=== PATIENT | male | born 1990 | race Caucasian/White ===

== ENCOUNTER → 2019-03-30 08:53 | Outpatient (CLI) | payer OTHER, MEDICAID, SELFPAY ==
[2019-03-30 10:00] LABS: Add Manual Diff / Slide Review NO; Basophils Absolute Auto 0 /uL (0-100); Basophils Percent Auto 0.5 % (0-2); Eosinophils Absolute Auto 200 /uL (0-450); Eosinophils Percent Auto 2.5 % (2-4); Hemoglobin 13.1 g/dL (13.5-17.5); Lymphocytes Absolute Auto 1900 /uL (1100-4500); Lymphocytes Percent Auto 23.6 % (25-40); Mean Corpuscular HGB Conc 34.5 % (30-36); Mean Corpuscular Hemoglobin 28.3 PG (26-34); Monocytes Absolute Auto 500 /uL (0-900); Monocytes Percent Auto 6.7 % (3-14); Neutrophils Absolute Auto 5300 /uL (1500-7000); Neutrophils Percent Auto 66.7 % (50-75); Platelet Count 369 X10^3/uL (150-400); Red Blood Cell Count 4.63 X10^6/uL (4.5-5.9); Red Cell Distribution Width 13.7 % (11.6-14.8); White Blood Cell Count 7.9 X10^3/uL (4.5-11.0)
[2019-03-30 10:19] LABS: Alanine Aminotransferase 49 IU/L (21-72); Albumin 4.2 g/dL (3.5-5.0); Albumin Globulin Ratio 1.3 (1.0-2.8); Alkaline Phosphatase 108 U/L (38-126); Aspartate Aminotransferase 37 IU/L (17-59); BUN Creatinine Ratio 13.8 (6-22); Bilirubin Total 0.5 mg/dL (0.2-1.3); Blood Urea Nitrogen 11 mg/dL (9-20); Calcium 9.4 mg/dL (8.4-10.2); Carbon Dioxide 27 mmol/L (22-32); Chloride 100 mmol/L (98-107); Estimated Glomerular Filt Rate > 60.0 mL/min (>60); Globulin 3.2 g/dL (1.7-4.1); Glucose 100 mg/dL (70-100); HEMOLYSIS < 15 (0-50); Potassium 4.3 mmol/L (3.4-5.1); Sodium 138 mmol/L (137-145); Total Protein 7.4 g/dL (6.3-8.2)
== END ==
PROVIDERS: Visit Provider Hospitalist
DX: I10 Essential (primary) hypertension (principal)
CPT/HCPCS: 36415; 80053; 85025

== ENCOUNTER → 2019-05-16 07:44 | Outpatient (CLI) | payer OTHER, MEDICAID, SELFPAY ==
[2019-05-16 08:57] LABS: Cholesterol 226 mg/dL (140-199); HDL Cholesterol 45 mg/dL (40-60); LDL Cholesterol Calculated 152 mg/dL (<100); Triglycerides 143 mg/dL (35-150)
[2019-05-16 09:29] LABS: Thyroid Stimulating Hormone 1.08 uIU/mL (0.47-4.68)
== END ==
PROVIDERS: Visit Provider Hospitalist
DX: I10 Essential (primary) hypertension (principal)
CPT/HCPCS: 36415; 80061; 84443

== ENCOUNTER 2020-01-18 07:55 | Emergency (ER) | payer OTHER, MEDICAID, SELFPAY ==
[2020-01-18 08:00] VITALS: BP 148/77; PULSE 86; RESP 16; TEMP 36.5; O2SAT 96; BMI 52.7
[2020-01-18 08:04] VITALS: PULSE 75; O2SAT 97
[2020-01-18 08:05] VITALS: BP 148/77; PULSE 75; O2SAT 98
[2020-01-18] MEDS: KETOROLAC 60 MG/2 ML VIAL 15 MG IV (08:10)
[2020-01-18] MEDS: SODIUM CHLORIDE 0.9% 1,000 ML 1000 ML IV (08:10)
--- NOTE | 2020-01-18 08:44 | DI.CT.S_ITS ---
PROCEDURE: CT KIDNEY URETER BLADDER (KUB) INDICATIONS: severe flank pain, hematuria TECHNIQUE: Noncontrast 5 mm thick sections acquired from the diaphragms to the symphysis. 5 mm thick coronal and sagittal reformats were then performed. For radiation dose reduction, the following was used: automated exposure control, adjustment of mA and/or kV according to patient size. COMPARISON: None. FINDINGS: Image quality: This study is limited by body habitus. Lung bases: Lung bases are clear. Heart size is normal. A small hiatal hernia is incidentally noted. Urinary system: There is a 3 mm obstructing stone seen at the right ureteropelvic junction, as on series 2 image 79 and on series 4 image 49. There is associated minimal right-sided hydronephrosis. No nonobstructing stones are seen. No hydroureter can be seen on either side. Both kidneys are normal in size. Bladder wall thickness is normal; no calcified bladder stones. Other solid organs: Liver is normal in size. Gallbladder wall does not appear thickened. Pancreas is normal in contours. Spleen is normal in size. No adrenal nodules. Peritoneum and bowel: Unenhanced bowel loops demonstrate normal wall thickness and caliber. No free fluid or air. Nodes and vessels: No retroperitoneal or mesenteric adenopathy by size criteria. Aorta and inferior vena cava are normal in caliber. Abdominal wall: A mild periumbilical hernia is seen, containing fat. Pelvis: No free pelvic fluid. No inguinal hernias or adenopathy. Bones: No suspicious bony lesions. No vertebral body compression fractures. This patient has transitional lumbar anatomy. For the purposes of this examination, the level with the most inferior pair of ribs is considered to be T12. By this numbering scheme, there are only 4 lumbar type vertebral bodies seen. IMPRESSION: There is a 3 mm obstructing stone seen at the right ureteropelvic junction. No nonobstructing stones are seen. Incidental note is made of: Small hiatal hernia Small fat containing periumbilical hernia Transitional lumbar anatomy, with only 4 lumbar type vertebral bodies Dictated by: Brandon Jackman M.D. on 01/18/2020 at 8:07 Approved by: Brandon Jackman M.D. on 01/18/2020 at 8:10
[2020-01-18 08:52] LABS: Ictotest Urine Negative (Negative)
[2020-01-18 08:53] LABS: Bacteria Urine Many (>30); Culture Indicated Urine Specimen Cultured; RBC Urine >100/HPF (0-5/HPF); Squamous Epithelial Cell Urine 0-1 /HPF (0-5/HPF); WBC Urine 1-5/HPF (0-5/HPF)
--- NOTE | 2020-01-18 08:53 | ED_ITS ---
HPI - Abdominal Pain General Chief Complaint: Abdominal Pain Stated Complaint: SIDE/STOMACH AND BACK PAIN Time Seen by Provider: 01/18/20 07:56 Source: patient Mode of arrival: Ambulatory Limitations: no limitations History of Present Illness HPI narrative: 29M nonsmoker with history of hypertension and morbid obesity presents this morning with a chief complaint of a sudden onset right flank pain with radiation into his groin. He denies any injury or history of the same. He states the pain comes and goes without provocation or palliation. He denies dysuria, frequency or urgency. He denies any obvious blood in his urine. He states that though he has never had a kidney stone his father has a strong history. Related Data Home Medications Medication Instructions Recorded Confirmed ranitidine HCl 150 mg tablet 150 mg PO DAILY 03/30/19 03/30/19 Previous Rx's Medication Instructions Recorded amlodipine 5 mg tablet 5 mg PO DAILY #30 tab 04/25/19 amlodipine 10 mg tablet 10 mg PO DAILY #30 tab 05/11/19 cephalexin [Keflex] 500 mg PO QID 7 Days #28 cap 01/18/20 hydrocodone-acetaminophen 1 tab PO Q4-6H PRN #10 tab 01/18/20 ketorolac 10 mg PO Q6H PRN #14 tab 01/18/20 ondansetron 4 mg PO TID-QID PRN #10 tab 01/18/20 Allergies Allergy/AdvReac Type Severity Reaction Status Date / Time No Known Drug Allergies Allergy Verified 01/18/20 08:05 Review of Systems Constitutional Constitutional: Denies chills, Denies fatigue, Denies fever(s), Denies frequent falls, Denies lethargy and Denies weakness Eyes Eyes: Denies change in vision, Denies eye discharge, Denies irritation and Denies loss of vision ENT Ears, Nose, Mouth, and Throat: Denies change in voice, Denies dizziness, Denies neck pain, Denies sore throat and Denies throat swelling Cardiovascular Cardiovascular: Denies chest pain, Denies irregular heart rhythm, Denies lightheadedness, Denies palpitations, Denies dyspnea, Denies dyspnea on exertion and Denies orthopnea Respiratory Respiratory: Denies cough, Denies dyspnea, Denies dyspnea on exertion and Denies wheezing Gastrointestinal Gastrointestinal: Denies abdominal pain, Denies change in bowel habits, Denies diarrhea, Denies nausea and Denies vomiting Genitourinary Comments: Flank pain Musculoskeletal Musculoskeletal: Denies neck pain and Denies numbness Integumentary/Breasts Skin/Breast: Denies pruritus, Denies erythema, Denies rash and Denies wounds Neurologic Neurologic: Denies behavioral changes, Denies confusion, Denies dizziness, Denies frequent falls, Denies loss of vision, Denies numbness and Denies weakness Psychiatric Psychiatric: Denies anxiety, Denies behavioral changes, Denies confusion, Denies depression, Denies homicidal ideation and Denies suicidal ideation Endocrine Endocrine: Denies fatigue, Denies flushing and Denies palpitations Hematologic/Lymphatic Hematologic/Lymphatic: Denies easy bruising Allergic/Immunologic Allergic/Immunologic: Denies urticaria, Denies throat swelling and Denies wheez ing Patient History Family History Mother Hypertension Grandmother Diabetes mellitus Father Nephrolithiasis Social History Smoking Status: Never smoker Smoking Status: Never smoker alcohol intake frequency: holidays/special occasions only Substance Use Type: does not use Exam Narrative Exam Narrative: GENERAL: [29] year old patient appears stated age. Well- nourished, well-developed patient, in mild distress. HEAD: Atraumatic. Normocephalic. EYES: Pupils equal round and reactive. Extraocular motions intact. No scleral icterus. No injection or drainage. ENT: Nose without bleeding, purulent drainage. Throat without erythema, to nsillar hypertrophy or exudate. Airway patent. NECK: Trachea midline. Non tender CARDIOVASCULAR: Regular rate and rhythm without murmurs, gallops, or rubs. RESPIRATORY: Clear to auscultation. Breath sounds equal bilaterally. No wheezes, rales, or rhonchi. GASTROINTESTINAL: Abdomen soft, non-tender, nondistended. EXTREMITIES: No edema or joint tenderness. BACK: Nontender without deformity or crepitance. No flank tenderness. NEURO: AOx3. SKIN: No rash or erythema of visible areas Initial Vital Signs Initial Vital Signs: Vital Signs Temperature 97.7 F 01/18/20 08:00 Pulse Rate 86 01/18/20 08:00 Respiratory Rate 16 01/18/20 08:00 Blood Pressure 148/77 H 01/18/20 08:00 Pulse Oximetry 96 01/18/20 08:00 Course Course Course Narrative: Orders Ordered: ED Orders 01/18/20 08:15 Basic Metabolic Panel Stat Complete Blood Count AUTO DIFF Stat 01/18/20 08:18 Ictotest Urine Stat Urine Culture Stat Urine Microscopic Stat 01/18/20 08:44 CT kidney ureter bladder (KUB) Stat Discontinued Medications Sodium Chloride (Normal Saline 0.9%) 1,000 mls @ 1,000 mls/hr IV BOLUS ONE Stop: 01/18/20 09:05 Last Infusion: 01/18/20 09:45 Dose: 0 mls/hr Documented by: Admin: 01/18/20 08:10 Dose: 1,000 mls/hr Documented by: REYNA Ketorolac Tromethamine (Toradol) 15 mg IV NOW ONE Stop: 01/18/20 08:07 Last Admin: 01/18/20 08:10 Dose: 15 mg Documented by: REYNA Vital Signs Vital signs: Vital Signs - 8 hr 01/18/20 08:00 01/18/20 08:04 01/18/20 08:05 Temperature 97.7 F Pulse Rate 86 75 75 Respiratory Rate 16 Blood Pressure 148/77 H 148/77 H Pulse Oximetry 96 97 98 01/18/20 09:46 Temperature Pulse Rate 77 Respiratory Rate 16 Blood Pressure 138/72 Pulse Oximetry 97 MDM - Abdominal Pain Lab Data Result diagrams: 01/18/20 08:15 01/18/20 08:15 Labs: Lab Results 01/18/20 01/18/20 01/18/20 Range/Units 08:15 08:15 08:18 WBC 10.8 (4.5-11.0) X10^3/uL RBC 4.49 L (4.5-5.9) X10^6/uL Hgb 12.5 L (13.5-17.5) g/dL Hct 37.1 L (41-53) % MCV 82.8 (80-100) fL MCH 27.8 (26-34) PG MCHC 33.6 (30-36) % RDW 13.8 (11.6-14.8) % Plt Count 332 (150-400) X10^3/uL Neut % (Auto) 83.1 H (50-75) % Lymph % (Auto) 11.4 L (25-40) % [place] % (Auto) 4.6 (3-14) % Eos % (Auto) 0.3 L (2-4) % Baso % (Auto) 0.6 (0-2) % Neut # (Auto) 9000 H (6144-5189) /uL Lymph # (Auto) 1200 (1809-5079) /uL [place] # (Auto) 500 (0-900) /uL Eos # (Auto) 0 (0-450) /uL Baso # (Auto) 100 (0-100) /uL Sodium 137 (137-145) mmol/L Potassium 3.9 (3.4-5.1) mmol/L Chloride 103 (98-107) mmol/L Carbon Dioxide 28 (22-32) mmol/L BUN 11 (9-20) mg/dL Creatinine 0.92 (0.66-1.25) mg/dL Estimated GFR > 60.0 (>60) mL/min BUN/Creatinine Ratio 12.0 (6-22) Glucose 122 H (70-100) mg/dL Calcium 9.0 (8.4-10.2) mg/dL Ur Bilirubin Confirm Negative (Negative) Urine RBC >100/hpf H (0-5/HPF) Urine WBC 1-5/hpf (0-5/HPF) Ur Squamous Epith Cells 0-1 /hpf (0-5/HPF) Urine Bacteria Many (>30) H (None) Ur Culture Indicated? Specimen cultured Point of care testing: Urine Dip Bedside Urine Glucose Negative Bedside Urine Bilirubin + 1 Bedside Urine Ketone +/- 5 Urine Specific [place] 1.025 Bedside Urine Occult Blood +++ Bedside Urine pH 6.0 Bedside Urine Protein + 30 Bedside Urine Urobilinogen - Negative Bedside Urine Nitrite - Negative Bedside Urine Leukocytes +/- [address] scan - abdomen/pelvis: Radiologist's Impression: [address] [address] [address] Scan Report Signed Patient: Joselo Bianchi [facility]#: [id number] : 1990Acct:[id number] Age/Sex: 29 / MDate of Service: 01/18/20 Loc: ED Accession Number: [id number] Procedure: CT kidney ureter bladder (KUB) Ordering Provider: Ardmore,Jake D.O. PROCEDURE: CT KIDNEY URETER BLADDER (KUB) INDICATIONS: severe flank pain, hematuria TECHNIQUE: Noncontrast 5 mm thick sections acquired from the diaphragms to the symphysis. 5 mm thick coronal and sagittal reformats were then performed. For radiation dose reduction, the following was used: automated exposure control, adjustment of mA and/or kV according to patient size. COMPARISON: None. FINDINGS: Image quality: This study is limited by body habitus. Lung bases: Lung bases are clear. Heart size is normal. A small hiatal hernia is incidentally noted. Urinary system: There is a 3 mm obstructing stone seen at the right ureteropelvic junction, as on series 2 image 79 and on series 4 image 49. There is associated minimal right-sided hydronephrosis. No nonobstructing stones are seen. No hydroureter can be seen on either side. Both kidneys are normal in size. Bladder wall thickness is normal; no calcified bladder stones. Other solid organs: Liver is normal in size. Gallbladder wall does not appear thickened. Pancreas is normal in contours. Spleen is normal in size. No adrenal nodules. Peritoneum and bowel: Unenhanced bowel loops demonstrate normal wall thickness and caliber. No free fluid or air. Nodes and vessels: No retroperitoneal or mesenteric adenopathy by size criteria. Aorta and inferior vena cava are normal in caliber. Abdominal wall: A mild periumbilical hernia is seen, containing fat. Pelvis: No free pelvic fluid. No inguinal hernias or adenopathy. Bones: No suspicious bony lesions. No vertebral body compression fractures. This patient has transitional lumbar anatomy. For the purposes of this examination, the level with the most inferior pair of ribs is considered to be T12. By this numbering scheme, there are only 4 lumbar type vertebral bodies seen. IMPRESSION: There is a 3 mm obstructing stone seen at the right ureteropelvic junction. No nonobstructing stones are seen. Incidental note is made of: Small hiatal hernia Small fat containing periumbilical hernia Transitional lumbar anatomy, with only 4 lumbar type vertebral bodies Discharge Plan Departure Patient Disposition: Home Clinical Impression: Calculus of kidney Discharge Date/Time: 01/18/20 09:48 Instructions: DI for Kidney Stones Activity Restrictions/Additional Instructions: *You have been diagnosed with [right-sided kidney stone] *What to do: *Take medications as directed: Sent to [facility] *Follow up with your primary care provider in 2-3 days, call for an appointment. Let them know you were seen in the Emergency Department and that we ask that you be seen in follow up *Return to ER if you should have any new, worsening or concerning symptoms, such as [worsening pain, persistent vomiting, fever, shaking chills or other bothersome symptoms] Prescriptions: New hydrocodone-acetaminophen 5-325 mg tablet 1 tab PO Q4-6H PRN (Reason: pain) Qty: 10 RF: 0 cephalexin [Keflex] 500 mg capsule 500 mg PO QID 7 Days Qty: 28 RF: 0 ketorolac 10 mg tablet 10 mg PO Q6H PRN (Reason: pain) Qty: 14 RF: 0 ondansetron 4 mg tablet,disintegrating 4 mg PO TID-QID PRN (Reason: nausea and vomiting) Qty: 10 RF: 0 No Action amlodipine [Norvasc] 5 mg tablet 5 mg PO DAILY Qty: 30 RF: 0 amlodipine 10 mg tablet 10 mg PO DAILY Qty: 30 RF: 2 ranitidine HCl [Zantac] 150 mg tablet 150 mg PO DAILY RF: 0
[2020-01-18 09:04] LABS: Add Manual Diff / Slide Review NO; Basophils Absolute Auto 100 /uL (0-100); Basophils Percent Auto 0.6 % (0-2); Eosinophils Absolute Auto 0 /uL (0-450); Eosinophils Percent Auto 0.3 % (2-4); Hematocrit 37.1 % (41-53); Hemoglobin 12.5 g/dL (13.5-17.5); Lymphocytes Absolute Auto 1200 /uL (1100-4500); Lymphocytes Percent Auto 11.4 % (25-40); Mean Corpuscular HGB Conc 33.6 % (30-36); Mean Corpuscular Hemoglobin 27.8 PG (26-34); Mean Corpuscular Volume 82.8 fL (80-100); Monocytes Absolute Auto 500 /uL (0-900); Monocytes Percent Auto 4.6 % (3-14); Neutrophils Absolute Auto 9000 /uL (1500-7000); Neutrophils Percent Auto 83.1 % (50-75); Platelet Count 332 X10^3/uL (150-400); Red Blood Cell Count 4.49 X10^6/uL (4.5-5.9); Red Cell Distribution Width 13.8 % (11.6-14.8); White Blood Cell Count 10.8 X10^3/uL (4.5-11.0)
[2020-01-18 09:27] LABS: Blood Urea Nitrogen 11 mg/dL (9-20); Carbon Dioxide 28 mmol/L (22-32); Chloride 103 mmol/L (98-107); Estimated Glomerular Filt Rate > 60.0 mL/min (>60); Glucose 122 mg/dL (70-100); HEMOLYSIS < 15 (0-50); Potassium 3.9 mmol/L (3.4-5.1); Sodium 137 mmol/L (137-145)
[2020-01-18 09:46] VITALS: BP 138/72; PULSE 77; RESP 16; O2SAT 97
== END 2020-01-18 09:48 | disposition home or self-care (01) ==
PROVIDERS: Emergency Provider Emergency Medicine
DX: N20.0 Calculus of kidney (principal); R31.9 Hematuria, unspecified; I10 Essential (primary) hypertension; E66.01 Morbid (severe) obesity due to excess calories
CPT/HCPCS: 74176; 80048; 81003; 81015; 85025; 87086; 96361; 96374; 99284; J1885

== ENCOUNTER 2020-01-31 00:12 | Emergency (ER) | payer OTHER, MEDICAID, SELFPAY ==
[2020-01-31 00:21] VITALS: BP 238/108; PULSE 78; RESP 21; O2SAT 99
[2020-01-31] MEDS: KETOROLAC 60 MG/2 ML VIAL 15 MG IV (00:44)
[2020-01-31] MEDS: LIDOCAINE 2% IV (00:44)
[2020-01-31] MEDS: SODIUM CHLORIDE 0.9% IV (00:44)
[2020-01-31] MEDS: SODIUM CHLORIDE 0.9% 1,000 ML 1000 ML IV (00:45)
[2020-01-31 00:55] LABS: Add Manual Diff / Slide Review NO; Basophils Absolute Auto 100 /uL (0-100); Basophils Percent Auto 0.7 % (0-2); Eosinophils Absolute Auto 200 /uL (0-450); Eosinophils Percent Auto 2.1 % (2-4); Hematocrit 36.4 % (41-53); Hemoglobin 12.2 g/dL (13.5-17.5); Lymphocytes Absolute Auto 2700 /uL (1100-4500); Lymphocytes Percent Auto 23.8 % (25-40); Mean Corpuscular HGB Conc 33.3 % (30-36); Mean Corpuscular Hemoglobin 27.6 PG (26-34); Mean Corpuscular Volume 82.9 fL (80-100); Monocytes Absolute Auto 900 /uL (0-900); Monocytes Percent Auto 7.7 % (3-14); Neutrophils Absolute Auto 7400 /uL (1500-7000); Neutrophils Percent Auto 65.7 % (50-75); Platelet Count 328 X10^3/uL (150-400); Red Cell Distribution Width 13.9 % (11.6-14.8); White Blood Cell Count 11.3 X10^3/uL (4.5-11.0)
[2020-01-31 01:01] LABS: BUN Creatinine Ratio 13.1 (6-22); Blood Urea Nitrogen 13 mg/dL (9-20); Calcium 8.8 mg/dL (8.4-10.2); Carbon Dioxide 23 mmol/L (22-32); Chloride 101 mmol/L (98-107); Estimated Glomerular Filt Rate > 60.0 mL/min (>60); Glucose 125 mg/dL (70-100); HEMOLYSIS < 15 (0-50); Potassium 3.5 mmol/L (3.4-5.1); Sodium 134 mmol/L (137-145)
--- NOTE | 2020-01-31 01:07 | PC.NURSE ---
voided approx 300 ml clear yellow urine without difficulty.
[2020-01-31 01:10] LABS: Bacteria Urine None Seen; RBC Urine None Seen (0-5/HPF); WBC Urine None Seen (0-5/HPF)
[2020-01-31 01:11] LABS: Appearance Urine UA CLEAR; Bilirubin Urine UA NEGATIVE (NEGATIVE); Color Urine UA YELLOW; Glucose Urine UA NEGATIVE (Negative); Ketones Urine UA NEGATIVE (NEGATIVE); Leukocyte Esterase Urine UA NEGATIVE (NEGATIVE); Nitrite Urine UA NEGATIVE (Negative); Occult Blood Urine UA 1+ (Negative); Protein Urine UA NEGATIVE (Negative); Specific Gravity Urine UA <=1.005 (1.000-1.035); Urobilinogen Urine UA 0.2 E.U./dL (0.2); pH Urine UA 6.5 (4.5-8.0)
--- NOTE | 2020-01-31 01:17 | ED.BACK ---
HPI - Back Pain/Injury General Chief Complaint: Back Pain/Injury Stated Complaint: painful urination lower right side back pain Time Seen by Provider: 01/31/20 00:12 Source: patient Mode of arrival: Ambulatory Limitations: no limitations History of Present Illness HPI Narrative: 30-year-old male nonsmoker with history of hypertension and morbid obesity as well as recent first-time kidney stone presents with a chief complaint of a recurrence of symptoms. He has severe, sudden onset right flank pain with radiation into his right groin. He denies provocation or palliation. He denies any obvious blood in his urine but does state that urinating seems to worsen his discomfort. He is nauseated but denies any vomiting. He denies any fever or chills. He is not dizzy nor weak or lightheaded. He denies any injury. MD Complaint: back pain Onset (ago): hour(s) Duration: intermittent Similar Symptoms Previously: Yes Location: right flank Severity: severe Quality: sharp Radiation: groin Relieving factors: none Exacerbating factors: other Associated symptoms: dysuria Related Data Home Medications Medication Instructions Recorded Confirmed ranitidine HCl 150 mg tablet 150 mg PO DAILY 03/30/19 03/30/19 Previous Rx's Medication Instructions Recorded amlodipine 5 mg tablet 5 mg PO DAILY #30 tab 04/25/19 amlodipine 10 mg PO DAILY #30 tab 01/31/20 hydrocodone-acetaminophen 1 tab PO Q4-6H PRN #10 tab 01/31/20 ketorolac 10 mg PO Q6H PRN #14 tab 01/31/20 ondansetron 4 mg PO TID-QID PRN #10 tab 01/31/20 Allergies Allergy/AdvReac Type Severity Reaction Status Date / Time No Known Drug Allergies Allergy Verified 01/18/20 08:05 Review of Systems Constitutional Constitutional: Denies chills, Denies fatigue, Denies fever(s), Denies frequent falls, Denies lethargy and Denies weakness Eyes Eyes: Denies change in vision, Denies eye discharge, Denies irritation and Denies loss of vision ENT Ears, Nose, Mouth, and Throat: Denies change in voice, Denies dizziness, Denies neck pain, Denies sore throat and Denies throat swelling Cardiovascular Cardiovascular: Denies chest pain, Denies irregular heart rhythm, Denies lightheadedness, Denies palpitations, Denies dyspnea, Denies dyspnea on exertion and Denies orthopnea Respiratory Respiratory: Denies cough, Denies dyspnea, Denies dyspnea on exertion and Denies wheezing Gastrointestinal Gastrointestinal: Denies abdominal pain, Denies change in bowel habits, Denies diarrhea, Denies nausea and Denies vomiting Genitourinary Genitourinary: Reports dysuria Genitourinary: Reports dysuria Comments: right flank pain Musculoskeletal Musculoskeletal: Denies neck pain and Denies numbness Integumentary/Breasts Skin/Breast: Denies pruritus, Denies erythema, Denies rash and Denies wounds Neurologic Neurologic: Denies behavioral changes, Denies confusion, Denies dizziness, Denies frequent falls, Denies loss of vision, Denies numbness and Denies weakness Psychiatric Psychiatric: Denies anxiety, Denies behavioral changes, Denies confusion, Denies depression, Denies homicidal ideation and Denies suicidal ideation Endocrine Endocrine: Denies fatigue, Denies flushing and Denies palpitations Hematologic/Lymphatic Hematologic/Lymphatic: Denies easy bruising Allergic/Immunologic Allergic/Immunologic: Denies urticaria, Denies throat swelling and Denies wheezing Patient History Family History Mother Hypertension Grandmother Diabetes mellitus Father Nephrolithiasis Social History Smoking Status: Never smoker Smoking Status: Never smoker alcohol intake frequency: holidays/special occasions only Substance Use Type: does not use Exam Narrative Exam Narrative: GENERAL: [30] year old patient appears stated age. Well-nourished, well-developed patient, in obvious distress. Pacing, rubbing his right flank HEAD: Atraumatic. Normocephalic. EYES: Pupils equal round and reactive. Extraocular motions intact. No scleral icterus. No injection or drainage. ENT: Nose without bleeding, purulent drainage. Throat without erythema, tonsillar hypertrophy or exudate. Airway patent. NECK: Trachea midline. Non tender CARDIOVASCULAR: Regular rate and rhythm without murmurs, gallops, or rubs. RESPIRATORY: Clear to auscultation. Breath sounds equal bilaterally. No wheezes, rales, or rhonchi. GASTROINTESTINAL: Abdomen soft, non-tender, nondistended. EXTREMITIES: No edema or joint tenderness. BACK: Nontender without deformity or crepitance. No flank tenderness. NEURO: AOx3. SKIN: No rash or erythema of visible areas Initial Vital Signs Initial Vital Signs: Vital Signs Pulse Rate 78 01/31/20 00:21 Respiratory Rate 21 01/31/20 00:21 Blood Pressure 238/108 H 01/31/20 00:21 Pulse Oximetry 99 01/31/20 00:21 Course Course Course Narrative: Patient feeling much better after the above-stated therapies. No evidence of infection in urine, no ABX indicated Orders Ordered: ED Orders 01/31/20 00:40 Basic Metabolic Panel Stat Complete Blood Count AUTO DIFF Stat 01/31/20 01:00 Urinalysis and Microscopic Stat Discontinued Medications Hydrocodone Bitart/Acetaminophen (Vicodin 5/325 Prepack) 1 bottle MISC SEEINSTR ONE Stop: 01/31/20 01:25 Last Admin: 01/31/20 01:32 Dose: 1 bottle Documented by: RORY Amlodipine Besylate (Norvasc) 10 mg PO NOW ONE Stop: 01/31/20 01:25 Last Admin: 01/31/20 01:32 Dose: 10 mg Documented by: RORY Sodium Chloride (Normal Saline 0.9%) 1,000 mls @ 1,000 mls/hr IV BOLUS ONE Stop: 01/31/20 01:16 Last Admin: 01/31/20 00:45 Dose: 1,000 mls/hr Documented by: RORY Lidocaine HCl 13.6 ml/ Sodium (Chloride) 63.6 mls @ 381.6 mls/hr IV NOW ONE Stop: 01/31/20 00:24 Last Admin: 01/31/20 00:44 Dose: 381.6 mls/hr Documented by: RORY Ketorolac Tromethamine (Toradol) 15 mg IV NOW ONE Stop: 01/31/20 00:18 Last Admin: 01/31/20 00:44 Dose: 15 mg Documented by: RORY Vital Signs Vital signs: Vital Signs - 8 hr 01/31/20 00:21 01/31/20 01:23 Temperature 98 F Pulse Rate 78 76 Respiratory Rate 21 18 Blood Pressure 238/108 H 182/106 H Pulse Oximetry 99 98 MDM - Back Pain/Injury Lab Data Result diagrams: 01/31/20 00:40 01/31/20 00:40 Labs: Lab Results 01/31/20 01/31/20 01/31/20 Range/Units 00:40 00:40 01:00 WBC 11.3 H (4.5-11.0) X10^3/uL RBC 4.40 L (4.5-5.9) X10^6/uL Hgb 12.2 L (13.5-17.5) g/dL Hct 36.4 L (41-53) % MCV 82.9 (80-100) fL MCH 27.6 (26-34) PG MCHC 33.3 (30-36) % RDW 13.9 (11.6-14.8) % Plt Count 328 (150-400) X10^3/uL Neut % (Auto) 65.7 (50-75) % Lymph % (Auto) 23.8 L (25-40) % [place] % (Auto) 7.7 (3-14) % Eos % (Auto) 2.1 (2-4) % Baso % (Auto) 0.7 (0-2) % Neut # (Auto) 7400 H (5341-8951) /uL Lymph # (Auto) 2700 (2670-0147) /uL [place] # (Auto) 900 (0-900) /uL Eos # (Auto) 200 (0-450) /uL Baso # (Auto) 100 (0-100) /uL Sodium 134 L (137-145) mmol/L Potassium 3.5 (3.4-5.1) mmol/L Chloride 101 (98-107) mmol/L Carbon Dioxide 23 (22-32) mmol/L BUN 13 (9-20) mg/dL Creatinine 0.99 (0.66-1.25) mg/dL Estimated GFR > 60.0 (>60) mL/min BUN/Creatinine Ratio 13.1 (6-22) Glucose 125 H (70-100) mg/dL Calcium 8.8 (8.4-10.2) mg/dL Urine Color Yellow Urine Appearance Clear Urine pH 6.5 (4.5-8.0) Ur Specific [place] <=1.005 (1.000-1.035) Urine Protein Negative (Negative) Urine Glucose (UA) Negative (Negative) g/dL Urine Ketones Negative (NEGATIVE) Urine Occult Blood 1+ H (Negative) Urine Nitrate Negative (Negative) Urine Bilirubin Negative (NEGATIVE) Urine Urobilinogen 0.2 (0.2) E.U./dL Ur Leukocyte Esterase Negative (NEGATIVE) Urine RBC None seen (0-5/HPF) Urine WBC None seen (0-5/HPF) Urine Bacteria None seen (None) Ur Culture Indicated? Cult not indicated Urine Dip Bedside Urine Glucose Negative Bedside Urine Bilirubin - Negative Bedside Urine Ketone - Negative Urine Specific [place] 1.005 Bedside Urine Occult Blood +/- Bedside Urine pH 6.0 Bedside Urine Protein - Negative Bedside Urine Urobilinogen - Negative Bedside Urine Nitrite - Negative Bedside Urine Leukocytes - Negative Esterase Discharge Plan Departure Patient Disposition: Home Clinical Impression: Calculus of kidney Hypertension Qualifiers: Hypertension type: essential hypertension Qualified Code(s): I10 - Essential (primary) hypertension Instructions: Essential Hypertension, DI for Kidney Stones Activity Restrictions/Additional Instructions: *You have been diagnosed with [right-sided renal colic, likely from a kidney stone and elevated blood pressure] *What to do: *Take medications as directed: [facility] *Follow up with your primary care provider in 2-3 days, call for an appointment. Let them know you were seen in the Emergency Department and that we ask that you be seen in follow up *Return to ER if you should have any new, worsening or concerning symptoms Prescriptions: Continued hydrocodone-acetaminophen 5-325 mg tablet 1 tab PO Q4-6H PRN (Reason: pain) Qty: 10 RF: 0 ketorolac 10 mg tablet 10 mg PO Q6H PRN (Reason: pain) Qty: 14 RF: 0 amlodipine 10 mg tablet 10 mg PO DAILY Qty: 30 RF: 2 ondansetron 4 mg tablet,disintegrating 4 mg PO TID-QID PRN (Reason: nausea and vomiting) Qty: 10 RF: 0 No Action amlodipine [Norvasc] 5 mg tablet 5 mg PO DAILY Qty: 30 RF: 0 ranitidine HCl [Zantac] 150 mg tablet 150 mg PO DAILY RF: 0 Referrals: Asher Schreiber MD [Physician] -
[2020-01-31 01:23] VITALS: BP 182/106; PULSE 76; RESP 18; TEMP 36.6; O2SAT 98
--- NOTE | 2020-01-31 01:24 | PC.NURSE ---
He has no PCP,out of his b/p meds.DR Oseguera notified of b/p.
[2020-01-31 01:30] LABS: Culture Indicated Urine Cult Not Indicated
[2020-01-31] MEDS: HYDROCODONE/ACET 5/325 PREPACK 1 BOTTLE MISC (01:32)
[2020-01-31] MEDS: AMLODIPINE 2.5 MG TABLET 10 MG PO (01:32)
[2020-01-31 02:10] VITALS: BP 165/89; PULSE 76; RESP 18; TEMP 36.4; O2SAT 98
== END 2020-01-31 02:25 | disposition home or self-care (01) ==
PROVIDERS: Emergency Provider Emergency Medicine
DX: N20.0 Calculus of kidney (principal); R30.0 Dysuria; I10 Essential (primary) hypertension
CPT/HCPCS: 36415; 80048; 81001; 81003; 85025; 96365; 96375; 99284; J1885

== ENCOUNTER → 2023-03-31 06:50 | Outpatient (CLI) | payer OTHER, MEDICAID, SELFPAY ==
--- NOTE | 2023-03-31 06:51 | DI.US.S_ITS ---
PROCEDURE: US SOFT TISSUE HEAD AND NECK INDICATIONS: RIGHT POSTERIOR NECK LUMP X 1 YEAR. TENDER AND RECENT GROWTH TECHNIQUE: Real-time scanning was performed of the neck region of interest, with image documentation. COMPARISON: None. FINDINGS: Sonographic images within the posterior neck demonstrate a heterogeneous focus of decreased complex echogenicity measuring 1.9 x 2.2 x 1.6 cm increased vascularity is present. There appears to be a tract extending to the skin surface. IMPRESSION: Focus of heterogeneous complex echogenicity within the subcutaneous fat with track extending to the skin. This can represent abscess or potentially sebaceous cyst. However, malignancy cannot be definitively excluded and further evaluation is recommended. Dictated by: Maya Ramey M.D. on 03/31/2023 at 16:30 Approved by: Maya Ramey M.D. on 03/31/2023 at 16:31
== END ==
PROVIDERS: Referring Provider Physician Assistant; Visit Provider Physician Assistant
DX: R22.1 Localized swelling, mass and lump, neck (principal)
CPT/HCPCS: 76536

== ENCOUNTER 2023-04-11 10:49 | Emergency (ER) | payer OTHER, MEDICAID, SELFPAY ==
[2023-04-11 10:54] VITALS: BP 207/119; PULSE 89; RESP 18; TEMP 37.1; O2SAT 97; BMI 52.3
--- NOTE | 2023-04-11 12:11 | ED.SKABFB ---
HPI - Skin/Abscess/Foreign Bdy General Chief complaint: Skin/Abscess/Foreign Body Stated complaint: large cyst on neck is leaking/smells Time Seen by Provider: 04/11/23 11:57 Source: patient Mode of arrival: Ambulatory Limitations: no limitations History of Present Illness HPI narrative: 33-year-old male who has had a lesion on the back of his neck that has been changing over the past year. He was initially told that it was a cyst although over the past couple days it has now started to drain a material that is very foul smelling. No fevers. He can not sit to notice whether or not it is change but he does feel like it is getting somewhat bigger. He is scheduled to see a primary doctor at the end of the year. Related Data Home Medications Medication Instructions Recorded Confirmed ranitidine HCl 150 mg tablet 150 mg PO DAILY 03/30/19 08/31/21 (Zantac) Previous Rx's Medication Instructions Recorded amlodipine 5 mg tablet (Norvasc) 5 mg PO DAILY #30 tabs 04/25/19 amlodipine 10 mg tablet 10 mg PO DAILY #30 tabs 01/31/20 hydrocodone 5 mg-acetaminophen 325 1 tab PO Q4-6H PRN pain #10 tabs 01/31/20 mg tablet ketorolac 10 mg tablet 10 mg PO Q6H PRN pain #14 tabs 01/31/20 ondansetron 4 mg disintegrating 4 mg PO TID-QID PRN nausea and 01/31/20 tablet vomiting #10 tabs Allergies Allergy/AdvReac Type Severity Reaction Status Date / Time No Known Drug Allergies Allergy Verified 04/11/23 11:03 Review of Systems Constitutional Constitutional: Reports system reviewed and no additional complaints, except as documented Integumentary/Breasts Skin/Breast: Reports system reviewed and no additional complaints, except as documented Hematologic/Lymphatic On Anticoagulants: No Allergic/Immunologic Allergic/Immunologic: Reports system reviewed and no additional complaints, except as documented Patient History Family History Mother Hypertension Grandmother Diabetes mellitus Father Nephrolithiasis Social History Smoking Status: Never smoker Smoking Status: Never smoker alcohol intake frequency: holidays/special occasions only Substance Use Type: marijuana Exam Initial Vital Signs Initial Vital Signs: Vital Signs Temperature 98.7 F 04/11/23 10:54 Pulse Rate 89 04/11/23 10:54 Respiratory Rate 18 04/11/23 10:54 Blood Pressure 207/119 H 04/11/23 10:54 Pulse Oximetry 97 04/11/23 10:54 Oxygen Delivery Method Room Air 04/11/23 10:54 HENMT Head: normal to inspection and normocephalic Skin Other: Patient does have a area of fluid collection on the right posterior aspect of the neck. No active drainage. Neuro General: patient alert and patient awake Extrem General: normal to inspection and capillary refill normal Procedures Abscess I/D I&D #1: Side (if applicable): right Local Anesthetic: lidocaine 1% Amount of anesthesia used (mL): 2 Technique: incised with #11 blade Irrigation: No Packing used?: none Course Vital Signs Vital signs: Vital Signs - 8 hr 04/11/23 10:54 Temperature 98.7 F Pulse Rate 89 Respiratory Rate 18 Blood Pressure 207/119 H Pulse Oximetry 97 Oxygen Delivery Method Room Air MDM - Skin/Abscess/Foreign Bdy MDM Narrative Medical decision making narrative: There is no surrounding erythema. Bedside ultrasound does show a fluid collection in the right posterior neck. We discussed that this potentially could be a cyst given the length of time that he is had it but also could be an infected cyst and also an abscess. We discussed incision and drainage. We opted for the and shows an drainage. There was cystic material that resulted. The patient understands this may return and that he does need to follow up with his primary doctor. There was no indication for antibiotics. He was given return precautions. He expressed understanding and agreement. Discharge Plan Departure Patient Disposition: Home Clinical Impression: Epidermal cyst Activity Restrictions/Additional Instructions: You can shower like normal. I would not be surprised if you continue to have some drainage from the area that we could open today. You can just cover with a bandage as needed. You are going to need follow-up with your primary doctor as scheduled at the end of this year. Return to the emergency department for new or worsening symptoms. Prescriptions: No Action amlodipine [Norvasc] 5 mg tablet 5 mg PO DAILY Qty: 30 0RF ranitidine HCl [Zantac] 150 mg tablet 150 mg PO DAILY hydrocodone-acetaminophen 5-325 mg tablet 1 tab PO Q4-6H PRN (Reason: pain) Qty: 10 0RF ketorolac 10 mg tablet 10 mg PO Q6H PRN (Reason: pain) Qty: 14 0RF amlodipine 10 mg tablet 10 mg PO DAILY Qty: 30 2RF ondansetron 4 mg tablet,disintegrating 4 mg PO TID-QID PRN (Reason: nausea and vomiting) Qty: 10 0RF Referrals: Miscellaneous,Doctor, MD [Primary Care Provider] - Stand Alone Forms: Patient Portal/API
== END 2023-04-11 12:20 | disposition home or self-care (01) ==
PROVIDERS: Emergency Provider Emergency Medicine
DX: L72.0 Epidermal cyst (principal)
CPT/HCPCS: 10060; 99281; 99283

== ENCOUNTER → 2023-10-03 08:34 | Outpatient (CLI) | payer OTHER, MEDICAID, SELFPAY ==
[2023-10-03 10:15] LABS: Add Manual Diff / Slide Review NO; Basophils Absolute Auto 0 /uL (0-100); Basophils Percent Auto 0.3 % (0-2); Eosinophils Absolute Auto 200 /uL (0-450); Eosinophils Percent Auto 1.9 % (2-4); Hematocrit 37.7 % (41-53); Hemoglobin 12.7 g/dL (13.5-17.5); Lymphocytes Absolute Auto 1800 /uL (1100-4500); Lymphocytes Percent Auto 22.8 % (25-40); Mean Corpuscular HGB Conc 33.6 % (30-36); Mean Corpuscular Volume 83.5 fL (80-100); Monocytes Absolute Auto 400 /uL (0-900); Monocytes Percent Auto 5.4 % (3-14); Neutrophils Absolute Auto 5500 /uL (1500-7000); Neutrophils Percent Auto 69.6 % (50-75); Platelet Count 372 X10^3/uL (150-400); Red Blood Cell Count 4.52 X10^6/uL (4.5-5.9); Red Cell Distribution Width 14.3 % (11.6-14.8); White Blood Cell Count 7.9 X10^3/uL (4.5-11.0)
[2023-10-03 10:30] LABS: Hemoglobin A1C% w Est Avg Glu 5.5 % (4.0-6.0)
[2023-10-03 11:04] LABS: Alanine Aminotransferase 35 IU/L (<50); Albumin 3.9 g/dL (3.5-5.0); Albumin Globulin Ratio 1.3 (1.0-2.8); Alkaline Phosphatase 99 U/L (38-126); Aspartate Aminotransferase 27 IU/L (17-59); BUN Creatinine Ratio 10.4 (6-22); Bilirubin Total 0.5 mg/dL (0.2-1.3); Blood Urea Nitrogen 8 mg/dL (9-20); Calcium 8.8 mg/dL (8.4-10.2); Carbon Dioxide 30 mmol/L (22-32); Chloride 103 mmol/L (98-107); Cholesterol 204 mg/dL (140-199); Estimated Glomerular Filt Rate > 60 mL/min (>60); Globulin 3.1 g/dL (1.7-4.1); Glucose 105 mg/dL (70-100); HDL Cholesterol 39 mg/dL (40-60); HEMOLYSIS < 15 (0-50); LDL Cholesterol Calculated 128 mg/dL (<100); Potassium 4.1 mmol/L (3.4-5.1); Sodium 138 mmol/L (137-145); Triglycerides 185 mg/dL (35-150)
[2023-10-03 11:07] LABS: Microalbumin Urine Random 0.6 mg/dL (0-1.6)
[2023-10-03 11:09] LABS: Creatinine Urine Random 92.9 mg/dL; Microalbumi Creatinin Ratio Ur 6.4 ug/mg CR (<30)
[2023-10-03 11:31] LABS: TSH w/ Reflex to FT4 0.94 uIU/mL (0.47-4.68)
== END ==
PROVIDERS: PCP Family Medicine; Referring Provider Family Medicine; Visit Provider Family Medicine
DX: E66.01 Morbid (severe) obesity due to excess calories (principal); I10 Essential (primary) hypertension
CPT/HCPCS: 36415; 80053; 80061; 82043; 82570; 83036; 84443; 85025

== ENCOUNTER 2023-10-19 18:17 | Emergency (ER) | payer OTHER, MEDICAID, SELFPAY ==
[2023-10-19 18:22] VITALS: BP 173/95; PULSE 75; RESP 18; TEMP 36.5; O2SAT 98; BMI 49.8
--- NOTE | 2023-10-19 18:27 | DI.RAD.S_ITS ---
PROCEDURE: XR FOOT RT MIN 3V INDICATIONS: slammed foot into concrete step TECHNIQUE: 3 views of the foot were acquired. COMPARISON: None. FINDINGS: Bones: No fractures or dislocations. No suspicious bony lesions. Soft tissues: No tibiotalar joint effusion. Achilles tendon appears normal. IMPRESSION: No visualized acute fracture or dislocation. However, if clinical concern and/or pain persist, short interval imaging followup in 7-10 days is recommended, as occult injury cannot be definitively excluded. Dictated by: Maya Ramey M.D. on 10/19/2023 at 18:55 Approved by: Maya Ramey M.D. on 10/19/2023 at 18:55
--- NOTE | 2023-10-19 19:15 | ED.LOWEXIN ---
HPI - Extremity Injury (Lower) General Chief Complaint: Extremity Injury, Lower Stated Complaint: fall, rt foot pain Time Seen by Provider: 10/19/23 19:10 Source: patient Mode of arrival: Wheelchair History of Present Illness HPI Narrative: Patient is a 33-year-old male who is here for evaluation of right foot pain. Patient states that he hit the outside of his right foot on a object earlier today. Did have some discomfort but it was when he stood up after a period of time of sleeping when the pain became much worse. Describes it on the outside of his foot. No other injuries from the event. No ankle pain. Related Data Previous Rx's Medication Instructions Recorded Subcutaneous Supplies Kit #12 ea 10/03/23 losartan 25 mg tablet 25 mg PO DAILY blood pressure #90 10/03/23 tabs semaglutide See Rx Instructions SUBCUT .weekly 10/03/23 #2 mL Allergies Allergy/AdvReac Type Severity Reaction Status Date / Time No Known Drug Allergies Allergy Verified 10/03/23 07:51 Review of Systems Constitutional Constitutional: Reports system reviewed and no additional complaints, except as documented Musculoskeletal Musculoskeletal: Reports system reviewed and no additional complaints, except as documented Integumentary/Breasts Skin/Breast: Reports system reviewed and no additional complaints, except as documented Neurologic Neurologic: Reports system reviewed and no additional complaints, except as documented Patient History Family History Mother Hypertension Grandmother Diabetes mellitus Father Nephrolithiasis Social History Smoking Status: Current some day smoker Smoking Status: Current some day smoker alcohol intake frequency: holidays/special occasions only Substance Use Type: marijuana Exam Initial Vital Signs Initial Vital Signs: Vital Signs Temperature 97.7 F 10/19/23 18:22 Pulse Rate 75 10/19/23 18:22 Respiratory Rate 18 10/19/23 18:22 Blood Pressure 173/95 H 10/19/23 18:22 Pulse Oximetry 98 10/19/23 18:22 Oxygen Delivery Method Room Air 10/19/23 18:22 Cardio Pulses: dorsalis pedis present on the right Skin General: no rashes or lesions noted Neuro Sensory Exam: no sensory deficits noted Extrem Other: Right ankle is unremarkable. Achilles tendon is unremarkable. He does some tenderness along the base of the 5th metatarsal distal in the lateral aspect of his foot however his little toe is unremarkable the rest of his forefoot is unremarkable. Course Orders Ordered: ED Orders 10/19/23 18:26 Consult to [employer] - [employer]rector Stat 10/19/23 18:27 XR foot RT min 3V Stat Vital Signs Vital signs: Vital Signs - 8 hr 10/19/23 18:22 10/19/23 19:28 Temperature 97.7 F Pulse Rate 75 73 Respiratory Rate 18 18 Blood Pressure 173/95 H 144/78 H Pulse Oximetry 98 96 Oxygen Delivery Method Room Air Room Air MDM - Extremity Injury (Lower) Imaging Data Extremity x-ray #1: Radiologist's Impression: PROCEDURE: XR FOOT RT MIN 3V INDICATIONS: slammed foot into concrete step TECHNIQUE: 3 views of the foot were acquired. COMPARISON: None. FINDINGS: Bones: No fractures or dislocations. No suspicious bony lesions. Soft tissues: No tibiotalar joint effusion. Achilles tendon appears normal. IMPRESSION: No visualized acute fracture or dislocation. However, if clinical concern and/or pain persist, short interval imaging followup in 7-10 days is recommended, as occult injury cannot be definitively excluded. MDM Narrative Medical decision making narrative: Neurovascularly intact. A fractures noted on the x-rays. No skin changes over the area. Patient would like crutches because of the discomfort that he is having although he was informed that he can walk on his foot as tolerated because there were no fractures. Recommended Tylenol and ibuprofen and other conservative measures such as heat and ice. He was given return precautions. He expressed understanding and agreement. Discharge Plan Departure Patient Disposition: Home Clinical Impression: Injury of foot, right Instructions: How to Use Crutches, How To Perform RICE (Rest, Ice, Compress, Elevate) Activity Restrictions/Additional Instructions: No fractures were noted on the x-rays. You can walk on your foot as tolerated. Also recommend that you ice your foot. The crutches for your comfort. Tylenol and ibuprofen for any discomfort. Return to the emergency department for new or worsening symptoms. Prescriptions: No Action semaglutide 1 mg/mL See Rx Instructions SUBCUT .weekly Qty: 2 5RF Rx Instructions: 0.25 mg subcut weekly x 4 weeks, then 0.5 mg subcut weekly (DME) Subcutaneous Supplies Kit See Rx Instructions .ROUTE .MEDSUPPLY Qty: 12 3RF Rx Instructions: As directed with semaglutide losartan 25 mg tablet 25 mg PO DAILY Qty: 90 3RF Referrals: Kristen Rao DO [Primary Care Provider] - Stand Alone Forms: Patient Portal/API
[2023-10-19 19:28] VITALS: BP 144/78; PULSE 73; RESP 18; O2SAT 96
== END 2023-10-19 19:29 | disposition home or self-care (01) ==
PROVIDERS: Emergency Provider Emergency Medicine; PCP Family Medicine
DX: S99.921A Unspecified injury of right foot, initial encounter (principal); W18.30XA Fall on same level, unspecified, initial encounter
CPT/HCPCS: 73630; 99283

== ENCOUNTER → 2024-12-18 07:11 | Outpatient (CLI) | payer OTHER, SELFPAY ==
[2024-12-18 08:09] LABS: Alanine Aminotransferase 24 IU/L (<50); Albumin 4.4 g/dL (3.5-5.0); Albumin Globulin Ratio 1.5 (1.0-2.8); Alkaline Phosphatase 103 U/L (38-126); Aspartate Aminotransferase 26 IU/L (17-59); BUN Creatinine Ratio 16.1 (6-22); Bilirubin Total 0.8 mg/dL (0.2-1.3); Blood Urea Nitrogen 14 mg/dL (9-20); Calcium 9.2 mg/dL (8.4-10.2); Carbon Dioxide 28 mmol/L (22-32); Chloride 102 mmol/L (98-107); Cholesterol 235 mg/dL (140-199); Estimated Glomerular Filt Rate > 60 mL/min (>60); Globulin 2.9 g/dL (1.7-4.1); Glucose 111 mg/dL (70-99); HDL Cholesterol 49 mg/dL (40-60); HEMOLYSIS < 15 (0-50); LDL Cholesterol Calculated 163 mg/dL (<100); Potassium 4.5 mmol/L (3.4-5.1); Sodium 139 mmol/L (137-145); Total Protein 7.3 g/dL (6.3-8.2); Triglycerides 114 mg/dL (35-150)
[2024-12-18 15:26] LABS: HIV 1 & 2 Ab/Ag 4th Gen Combo NEGATIVE (NEGATIVE); Hep C Virus Ab w/Reflex Quant NEGATIVE s/c (NEGATIVE)
== END ==
PROVIDERS: PCP Family Medicine; Referring Provider Family Medicine; Visit Provider Family Medicine
DX: E66.01 Morbid (severe) obesity due to excess calories (principal); I10 Essential (primary) hypertension; E78.2 Mixed hyperlipidemia
CPT/HCPCS: 36415; 80053; 80061; 86803; 87389